=== PATIENT | male | born 1955 | race Caucasian/White ===

== ENCOUNTER → 2019-01-07 | Outpatient (CLI) | payer MEDICARE ==
[~2019-01-07] MED LIST: Amoxicillin500 MG PO; CHLO500 PO; HYDR1TAB94 PO; LISI5 PO; Metformin HCl1000 MG PO; Percocet 10-321 EACH PO; Prednisone20 MG PO; Valium5 MG PO
[2019-01-07 12:40] LABS: Appearance, Urine Clear (Clear); Bilirubin, Urine Neg (Neg); Blood, Urine Neg (Neg); Color, Urine Yellow (P-Yellow); Glucose Qualitative, Urine 4+ (Neg); Ketones, Urine 1+ (Neg); Leukocyte Esterase, Urine Neg (Neg); Nitrite, Urine Neg (Neg); Protein, Urine 2+ (Neg); Specific Gravity, Urine 1.025 (1.003-1.022); Urobilinogen, Urine NORM (Normal)
[2019-01-07 12:56] LABS: White Blood Cells, Urine Not Seen /hpf (0-5)
[2019-01-07 12:57] LABS: Bacteria Not Seen /hpf; Mucus Light (0-Heavy); Red Blood Cells, Urine Rare /hpf (0-2); Squamous Epithelial Cells Not Seen /hpf (Few)
== END | disposition home or self-care (01) ==
LOC: LAB SHORT 12:26 → LAB 12:26
PROVIDERS: Registered Nurse
DX: R31.29 Other microscopic hematuria (principal); R10.9 Unspecified abdominal pain
CPT/HCPCS: 81001

== ENCOUNTER → 2019-02-23 | Outpatient (CLI) | payer MEDICARE ==
[2019-02-23 13:21] LABS: Source, Urine Clean Catch
[2019-02-23 15:16] LABS: Bilirubin, Urine Neg (Neg); Blood, Urine Neg (Neg); Glucose Qualitative, Urine 3+ (Neg); Ketones, Urine 3+ (Neg); Leukocyte Esterase, Urine Neg (Neg); Nitrite, Urine Neg (Neg); Protein, Urine 1+ (Neg); Specific Gravity, Urine 1.025 (1.003-1.022); Urobilinogen, Urine NORM (Normal)
[2019-02-23 15:30] LABS: Appearance, Urine Turbid (Clear); Color, Urine Yellow (P-Yellow)
[2019-02-23 15:31] LABS: Amorphous Heavy (0-Heavy)
[2019-02-23 15:32] LABS: Bacteria Few /hpf; Calcium Oxalate Crystals Few /hpf; Red Blood Cells, Urine Not Seen /hpf (0-2); Squamous Epithelial Cells Not Seen /hpf (Few); White Blood Cells, Urine 0-2 /hpf (0-5)
== END | disposition home or self-care (01) ==
LOC: LAB SHORT 13:20 → LAB 13:20 → LAB FUT 02-23 13:40
PROVIDERS: Family Medicine
DX: R10.9 Unspecified abdominal pain (principal)
CPT/HCPCS: 81001

== ENCOUNTER 2020-09-24 20:00 | Emergency (ER) | payer MEDICARE ==
[~2020-09-24] VITALS: Ht 182.9 cm; Wt 117.9 kg
[~2020-09-24 20:00] MED LIST changes: +AZIT500 PO; +Amaryl1 MG PO; +BENZ100A PO; +FUROSEMIDE40 MG PO; +Klor-Con 1010 MEQ PO; +LOSA25; +METOPROLOL TART50 MG PO; +PRAVASTATIN SOD20 MG PO
[2020-09-24] MEDS ORDERED: IBU600 MG PO (20:30)
[2020-09-24 20:38] LABS: BASOPHILS ABSOLUTE AUTO 0.03 K/mm3 (0.00-0.23); BASOPHILS PERCENT AUTO 0 % (0-2); EOSINOPHILS ABSOLUTE AUTO 0.04 K/mm3 (0.00-0.68); EOSINOPHILS PERCENT AUTO 0 % (0-6); Hematocrit 40.9 % (37.0-53.0); Hemoglobin 14.2 g/dL (13.5-17.5); IMMATURE GRAN ABSOLUTE AUTO 0.08 K/mm3 (0.00-0.10); IMMATURE GRAN PERCENT AUTO 1 % (0-1); LYMPHOCYTES PERCENT AUTO 7 % (21-46); MONOCYTES ABSOLUTE AUTO 1.06 K/mm3 (0.16-1.47); MONOCYTES PERCENT AUTO 12 % (4-13); Mean Corpuscular HGB 29.8 pg (26.0-34.0); Mean Corpuscular HGB Conc 34.7 g/dL (31.5-36.5); Mean Corpuscular Volume 86 fL (80-100); Mean Platelet Volume 11.9 fL (9.1-12.4); NEUTROPHILS ABSOLUTE AUTO 7.14 K/mm3 (1.96-9.15); NEUTROPHILS PERCENT AUTO 80 % (41-73); Platelet Count 242 K/mm3 (150-400); Red Blood Cell Count 4.76 M/mm3 (4.30-5.90); White Blood Cell Count 8.95 K/mm3 (4.00-11.30)
[2020-09-24 20:56] LABS: Alanine Aminotransfer (ALT/SGP 34 U/L (12-78); Albumin, Blood 2.8 g/dL (3.4-5.0); Albumin/Globulin Ratio 0.7 (0.8-1.8); Alk Phos 67 U/L (50-136); Anion Gap 13 mmol/L (6-16); Aspartate Aminotrans (AST/SGOT 39 U/L (12-37); Bilirubin, Total 2.1 mg/dL (0.1-1.0); Blood Urea Nitrogen 23 mg/dL (8-24); Bun/Creatinine Ratio 27.4 (12.0-20.0); CO2, Blood 24 mmol/L (21-32); Calcium, Blood 8.3 mg/dL (8.5-10.1); Chloride, Blood 96 mmol/L (98-108); Creatinine, Blood 0.84 mg/dL (0.60-1.20); Globulin, Blood 4.1 g/dL (2.2-4.0); Glomerular Filtration Rate >60 (60-); Glucose, Blood 166 mg/dL (70-99); Potassium, Blood 3.3 mmol/L (3.5-5.5); Sodium, Blood 133 mmol/L (136-145); Total Protein, Blood 6.9 g/dL (6.4-8.2); Troponin I <0.015 ng/mL (0.000-0.040)
== END 2020-09-24 22:13 | disposition home or self-care (01) ==
LOC: ER 20:00
PROVIDERS: Emergency Medicine
DX: U07.1 COVID-19 (principal); J12.89 Other viral pneumonia; I10 Essential (primary) hypertension; Z79.84 Long term (current) use of oral hypoglycemic drugs; Z79.52 Long term (current) use of systemic steroids; Z79.899 Other long term (current) drug therapy
CPT/HCPCS: 36415; 71045; 80053; 83880; 84484; 85025; 93005; 93010; 99285-25

== ENCOUNTER → 2021-01-26 | Outpatient (CLI) | payer MEDICARE ==
[~2021-01-26] MED LIST changes: +ALPR.5 PO; +AMLO5 PO; +Aspir 8181 MG PO; +EZET10 PO; +FURO40 PO; +Flomax0.4 MG PO; +GLIM2 PO; +IBU600 MG PO; +LISI10 PO; +METF500C PO
== END | disposition home or self-care (01) ==
LOC: PLD 11:17 → LAB SHORT 11:17
DX: E11.9 Type 2 diabetes mellitus without complications (principal)
CPT/HCPCS: 82043

== ENCOUNTER 2021-06-08 10:51 | Day surgery (SDC) | payer MEDICARE ==
[~2021-06-08] VITALS: Ht 182.9 cm; Wt 127.8 kg
== END 2021-06-08 13:14 | disposition home or self-care (01) ==
LOC: ORSCSDS 10:51
PROVIDERS: Internal Medicine Gastroenterology
PROC: 0DBK8ZX Excision of Ascending Colon, Via Natural or Artificial Opening Endoscopic, Diagnostic (ICD-10-PCS; principal; 2021-06-08 12:00)
DX: Z12.11 Encounter for screening for malignant neoplasm of colon (principal); Z86.010 Personal history of colon polyps; D12.2 Benign neoplasm of ascending colon; K57.30 Diverticulosis of large intestine without perforation or abscess without bleeding; E11.9 Type 2 diabetes mellitus without complications; F41.9 Anxiety disorder, unspecified; G47.33 Obstructive sleep apnea (adult) (pediatric); I10 Essential (primary) hypertension; E66.9 Obesity, unspecified; Z68.38 Body mass index [BMI] 38.0-38.9, adult; K64.8 Other hemorrhoids; Z79.84 Long term (current) use of oral hypoglycemic drugs; Z79.82 Long term (current) use of aspirin; Z79.899 Other long term (current) drug therapy
CPT/HCPCS: 82947; 88305; 93005; 93010; J2704; J7120

== ENCOUNTER 2023-05-01 10:52 | Emergency (ER) | payer OTHER, MEDICARE ==
[~2023-05-01] VITALS: Ht 182.9 cm; Wt 124.7 kg
[2023-05-01 10:57] VITALS: BP 141/80
[2023-05-01] MEDS ORDERED: LOSA50 PO (11:28)
[2023-05-01] MEDS ORDERED: FARXIGA5 MG PO (11:28)
== END 2023-05-01 12:23 | disposition home or self-care (01) ==
LOC: ER 10:52
DX: S62.102A Fracture of unspecified carpal bone, left wrist, initial encounter for closed fracture (principal); W01.10XA Fall on same level from slipping, tripping and stumbling with subsequent striking against unspecified object, initial encounter; Z88.8 Allergy status to other drugs, medicaments and biological substances; Z79.899 Other long term (current) drug therapy; Z79.82 Long term (current) use of aspirin; I10 Essential (primary) hypertension
CPT/HCPCS: 29125; 73110; 99283-25

== ENCOUNTER → 2023-12-03 | Outpatient (CLI) | payer MEDICARE ==
[~2023-12-03] MED LIST changes: +FARXIGA5 MG PO; +LOSA50 PO
== END ==
LOC: LAB 13:10 → LAB SHORT 13:10
DX: R35.0 Frequency of micturition (principal)
CPT/HCPCS: 87086

== ENCOUNTER 2024-08-19 19:49 | Inpatient (IN) | payer MEDICARE ==
[~2024-08-19] VITALS: Ht 182.9 cm; Wt 123.8 kg
[~2024-08-19 19:49] MED LIST changes: +FARXIGA10 MG PO; +METF500 PO; +NEBI5 PO; +POTA10T PO; +PREDNISOLO15 MG/5 ML PO; +Prinivil10 MG PO; +REPATHA SU140 MG/1 M SC; +REPATHA SU140 MG/1 M SQ; +TELM20 PO; +TRULICITY1.5 MG/0.1 SQ; +TRULICITY3 MG/0.5 M SC; +VENL75ER PO
[2024-08-19 20:34] LABS: BASOPHILS ABSOLUTE AUTO 0.05 K/mm3 (0.00-0.23); BASOPHILS PERCENT AUTO 1 % (0-2); EOSINOPHILS ABSOLUTE AUTO 0.22 K/mm3 (0.00-0.68); EOSINOPHILS PERCENT AUTO 2 % (0-6); Hemoglobin 17.1 g/dL (13.5-17.5); IMMATURE GRAN ABSOLUTE AUTO 0.04 K/mm3 (0.00-0.10); IMMATURE GRAN PERCENT AUTO 0 % (0-1); LYMPHOCYTES ABSOLUTE AUTO 1.39 K/mm3 (0.84-5.20); LYMPHOCYTES PERCENT AUTO 13 % (21-46); MONOCYTES ABSOLUTE AUTO 0.91 K/mm3 (0.16-1.47); MONOCYTES PERCENT AUTO 8 % (4-13); Mean Corpuscular HGB 30.4 pg (26.0-34.0); Mean Corpuscular HGB Conc 34.2 g/dL (31.5-36.5); Mean Corpuscular Volume 89 fL (80-100); Mean Platelet Volume 10.8 fL (9.1-12.4); NEUTROPHILS ABSOLUTE AUTO 8.41 K/mm3 (1.96-9.15); NEUTROPHILS PERCENT AUTO 76 % (41-73); Platelet Count 205 K/mm3 (150-400); RDW Coefficient Variation 12.4 % (11.7-14.2); RDW Standard Deviation 40.4 fL (35.1-46.3); Red Blood Cell Count 5.62 M/mm3 (4.30-5.90); White Blood Cell Count 11.02 K/mm3 (4.00-11.30)
[2024-08-19 21:05] LABS: Albumin/Globulin Ratio 1.2 (0.8-1.8); Bilirubin, Total 1.6 mg/dL (0.1-1.0); Calcium, Blood 9.9 mg/dL (8.5-10.1); Creatinine, Blood 0.73 mg/dL (0.60-1.20); Globulin, Blood 3.3 g/dL (2.2-4.0); Potassium, Blood 4.1 mmol/L (3.5-5.5); Total Protein, Blood 7.3 g/dL (6.4-8.2)
[2024-08-20] MEDS ORDERED: Ondansetron HCl 2 MG / ML 2ML Vial IV ONE (02:40)
[2024-08-20] MEDS ORDERED: FentaNYL Citrate 50 MCG/ML 2 ML Injection IV PRN ×2 (02:40→05:25)
[2024-08-20] MEDS ORDERED: FLU VACC TS2024-25(6MOS UP)/PF 45 MCG/0.5 ML SYRINGE IM SCH (05:25)
[2024-08-20] MEDS ORDERED: Ondansetron HCl 2 MG / ML 2ML Vial IV PRN (05:25)
[2024-08-20] MEDS ORDERED: NS 1,000 ML IV SCH ×2 (05:25→16:00)
[2024-08-20] MEDS ORDERED: NS 1,000 ML IV ONE (08:18)
[2024-08-20] MEDS ORDERED: OXYB5 PO (08:30)
[2024-08-20] MEDS ORDERED: ZANAFLEX413 PO (08:30)
[2024-08-20] MEDS ORDERED: METFORMIN HCL500 M3 PO (08:32)
[2024-08-20] MEDS ORDERED: OXYC5 PO (08:33)
[2024-08-20] MEDS ORDERED: GLIMEPIRIDE2 M2 PO (08:33)
[2024-08-20] MEDS ORDERED: NEBIVOLOL HCL10 MG PO (08:34)
[2024-08-20] MEDS ORDERED: Insulin Regular 100 UNIT/ML 10ML Vial SC SCH (12:00)
[2024-08-20 13:50] LABS: Source, Urine Clean Catch
[2024-08-20 14:01] LABS: Appearance, Urine Clear (Clear); Bilirubin, Urine Neg (Neg); Blood, Urine Neg (Neg); Color, Urine Amber (P-Yellow); Glucose Qualitative, Urine 4+ (Neg); Ketones, Urine 1+ (Neg); Leukocyte Esterase, Urine 1+ (Neg); Nitrite, Urine Neg (Neg); Protein, Urine 2+ (Neg); Urobilinogen, Urine NORM (Normal)
[2024-08-20 14:08] LABS: Red Blood Cells, Urine Not Seen /hpf (0-2)
[2024-08-20 14:09] LABS: Bacteria Many /hpf; Squamous Epithelial Cells Not Seen /hpf (Few)
[2024-08-20 14:58] VITALS: BP 149/77
[2024-08-20] MEDS ORDERED: CefTRIAXone Sodium 1,000 MG in NS 100 ML IV SCH (15:14)
[2024-08-20] MEDS ORDERED: NS 500 ML IV ONE (16:05)
--- NOTE | 2024-08-20 18:17 | NUR ---
VSS, A-Ox4, denies SOB, denies any pain, denies any nausea, ambulates independently, on RA. Lungs clear, heart regular, NS on tele, bowel sound hypoactive, abdomen distended, firm and slightly tender to touch, NG_tube to Lnare on LIMWS, passing gas. Pt can make needs known, call gray in hand, bed in lowest position.
[2024-08-21 03:51] VITALS: BP 131/87
[2024-08-21 05:16] LABS: BASOPHILS ABSOLUTE AUTO 0.03 K/mm3 (0.00-0.23); BASOPHILS PERCENT AUTO 1 % (0-2); EOSINOPHILS ABSOLUTE AUTO 0.24 K/mm3 (0.00-0.68); EOSINOPHILS PERCENT AUTO 4 % (0-6); Hematocrit 48.7 % (37.0-53.0); IMMATURE GRAN ABSOLUTE AUTO 0.02 K/mm3 (0.00-0.10); IMMATURE GRAN PERCENT AUTO 0 % (0-1); LYMPHOCYTES ABSOLUTE AUTO 1.12 K/mm3 (0.84-5.20); LYMPHOCYTES PERCENT AUTO 17 % (21-46); MONOCYTES ABSOLUTE AUTO 0.92 K/mm3 (0.16-1.47); MONOCYTES PERCENT AUTO 14 % (4-13); Mean Corpuscular HGB 30.3 pg (26.0-34.0); Mean Corpuscular HGB Conc 32.9 g/dL (31.5-36.5); Mean Corpuscular Volume 92 fL (80-100); Mean Platelet Volume 10.9 fL (9.1-12.4); NEUTROPHILS PERCENT AUTO 64 % (41-73); Platelet Count 194 K/mm3 (150-400); RDW Coefficient Variation 12.5 % (11.7-14.2); RDW Standard Deviation 42.5 fL (35.1-46.3); Red Blood Cell Count 5.28 M/mm3 (4.30-5.90); White Blood Cell Count 6.53 K/mm3 (4.00-11.30)
[2024-08-21 05:40] LABS: Albumin, Blood 3.6 g/dL (3.4-5.0); Albumin/Globulin Ratio 1.1 (0.8-1.8); Bilirubin, Total 2.4 mg/dL (0.1-1.0); Bun/Creatinine Ratio 24.2 (12.0-20.0); Calcium, Blood 8.8 mg/dL (8.5-10.1); Creatinine, Blood 0.83 mg/dL (0.60-1.20); Globulin, Blood 3.3 g/dL (2.2-4.0); Potassium, Blood 4.2 mmol/L (3.5-5.5); Total Protein, Blood 6.9 g/dL (6.4-8.2)
--- NOTE | 2024-08-21 05:50 | NUR ---
SHIFT SUMMARY PT A/OX4. TELE IN PLACE WITH HR AT 60 NSR. ABD DISTENTION DECREASED, STILL SOME TENDERNESS TO TOUCH WITH DISTENTION. PASSING FLATUS AND REPORTS ONE LARGE BM. NGUYEN ICE CHIPS. DENIES N/V. AMBULATING IN HALLWAY X2. DENIES PAIN. NG TO LEFT NARE TO LOW INT SUCTION WITH 300ML OF GREEN/BROWN OUTPUT DURING SHIFT. PT CURRENTLY RESTING IN BED WITH CALL LIGHT IN REACH. WILL GIVE REPORT TO ONCOMING RN.
[2024-08-21 08:05] VITALS: BP 127/85
[2024-08-21 15:34] VITALS: BP 140/77
[2024-08-21] MEDS ORDERED: Insulin Regular 100 UNIT/ML 10ML Vial SC SCH (16:30)
--- NOTE | 2024-08-21 17:34 | NUR ---
NG TUBE REMOVED PER PHYSICIAN ORDERS. PT TOLERATED WELL, WITHOUT COMPLICATIONS.
--- NOTE | 2024-08-21 17:39 | NUR ---
SHIFT SUMMARY PT DRINKING CLEAR LIQUIDS WITHOUT ISSUES THROUGHOUT THE DAY. NG TUBE REMOVED THIS EVENING, DIET ADVANCED TO FULL LIQUIDS. REPORTS FLATTUS THROUGHOUT THE DAY. NO BOWEL MOVEMENT SINCE LAST NIGHT. VSS. MOVING INDEPENDENTLY IN ROOM. BED IN LOWEST POSITION. CALL LIGHT WITHIN REACH.
[2024-08-21 20:05] VITALS: BP 139/79
--- NOTE | 2024-08-22 02:41 | NUR ---
PAIN PT REPORTS CHRONIC L SHOULDER PAIN. WOKE UP FROM SLEEP IN PAIN AROUND MIDNIGHT REQUESTING PAIN MEDICATION FOR 5-6. ADMINISTERED PER EMAR.
--- NOTE | 2024-08-22 04:26 | NUR ---
SHIFT SUMMARY NO ACUTE CHANGES DURING SHIFT. PT DENIES ABD PAIN. PASSING FLATUS, PASSED X2 BM ON DAYSHIFT PER PT. NGUYEN FULL LIQUIDS WELL. VOIDING WITHOUT DIFFICULTY. PT ABLE TO GET REST DURING SHIFT. PT REQUESTED PAIN MEDS ONCE OVER SHIFT C/O LEFT SHOULDER PAIN WHICH PT REPORTS IS CHRONIC PAIN. PT VOICED UNDERSTANDING OF PLAN OF CARE, DENIES QUESTIONS/CONCERNS AT THIS TIME.
[2024-08-22 04:58] VITALS: BP 134/70
[2024-08-22 08:06] VITALS: BP 150/79
[2024-08-22] MEDS ORDERED: VISBIOME 112.51 EACH PO (08:46)
[2024-08-22] MEDS ORDERED: AMOCLA875 PO (08:46)
[2024-08-22] MEDS ORDERED: MIRALAX17 GM PO (08:46)
[2024-08-22] MEDS ORDERED: Amoxicillin/Clavulanate K 875 MG Tab PO SCH (09:00)
[2024-08-22] MEDS ORDERED: Lactobacil 2-S.Thermo-Bifido 1 1 Cap PO SCH (09:00)
[2024-08-22] MEDS ORDERED: Amoxicillin/Clavulanate K 875 MG Tab PO ONE (09:05)
--- NOTE | 2024-08-22 09:43 | NUR ---
DISCHARGE NOTE PT WAS ALERT AND ORIENTED X 4, HE ANSWERED QUESTIONS APPROPRIATELY AND WAS ABLE TO MAKE HIS NEEDS KNOWN. HE WAS INDEPENDENT IN THE ROOM. VSS. HE DENIED FEELINGS OF NAUSEA, VOMITTING AND ABD PAIN. HE DENIED FEELINGS OF CHEST PAIN/PRESSURE, LIGHTHEADEDNESS/DIZZINESS OR SOB. THIS RN DISCUSSED DISCHARGE INSTRUCTIONS W/ THE PT AND HIS INCLUDING BUT NOT LIMITED TO MEDICATION REGIMEN, DIET AND FOLLOW UP APPOINTMENTS. PT LEFT SURGICAL FLOOR W/ ALL OF PT BELONGINGS AT APPROX. 0930.
== END 2024-08-22 09:35 | disposition home or self-care (01) | DRG 389 ==
LOC: ER 19:49 → ERHOLD 08-20 03:30 → SURS 08-20 15:05
PROVIDERS: Student in an Organized Health Care Education/Training Program; ADMIT Internal Medicine
DX: K56.609 Unspecified intestinal obstruction, unspecified as to partial versus complete obstruction (principal); N39.0 Urinary tract infection, site not specified; Z88.8 Allergy status to other drugs, medicaments and biological substances; B95.2 Enterococcus as the cause of diseases classified elsewhere; I10 Essential (primary) hypertension; E11.9 Type 2 diabetes mellitus without complications; N40.0 Benign prostatic hyperplasia without lower urinary tract symptoms; E78.5 Hyperlipidemia, unspecified; Z79.899 Other long term (current) drug therapy; Z79.84 Long term (current) use of oral hypoglycemic drugs
CPT/HCPCS: 36415; 74177; 80053; 81001; 82947; 83036; 83605; 83690; 83880; 85025; 87077; 87086; 87186; 93005; 93010; 96374; 96375; 99285-25; A9270; J0696; J1815; J2405; J3010; J7030; Q9967